=== PATIENT | male | born 1960 | race Caucasian/White ===

== ENCOUNTER 2018-04-08 15:41 | Outpatient (RCR) | payer OTHER ==
[~2018-04-08 15:41] MED LIST: ATORVASTATIN CA40 MG PO; GLUCOVANCE 5-51 EACH PO; LEVEMIR100 UNIT/1 SQ; PIOGLITAZONE45 MG PO; VICTOZA
== END 2018-04-09 ==
LOC: PT 15:41
PROVIDERS: ATTEND Neurological Surgery
DX: M43.17 Spondylolisthesis, lumbosacral region (principal); M62.81 Muscle weakness (generalized)

== ENCOUNTER 2018-04-29 17:00 | Outpatient (RCR) | payer OTHER | END 2018-05-10 | LOC: PT 17:00 | PROVIDERS: ATTEND Neurological Surgery | DX: M43.17 Spondylolisthesis, lumbosacral region (principal); M62.81 Muscle weakness (generalized) ==